=== PATIENT | male | born 1975 | race Caucasian/White ===

== ENCOUNTER → 2016-11-17 | Outpatient (CLI) | payer OTHER ==
[2013-01-25 22:45] VITALS: BP 126/75
[~2016-11-17] MED LIST: CEPHALEXIN500 M1 PO
== END ==
LOC: LAB 16:07
DX: K21.9 Gastro-esophageal reflux disease without esophagitis (principal); F98.8 Other specified behavioral and emotional disorders with onset usually occurring in childhood and adolescence; F41.9 Anxiety disorder, unspecified; R35.1 Nocturia

== ENCOUNTER → 2020-10-11 | Outpatient (CLI) | payer BC | LOC: LAB 08:33 | DX: J02.9 Acute pharyngitis, unspecified (principal) ==

== ENCOUNTER → 2021-02-03 | Outpatient (CLI) | payer BC ==
[2021-02-03 14:45] LABS: BASO # 0.04 K/mm3 (0.02-0.10); EOS # 0.13 K/mm3 (0.04-0.40); EOS % 1.6 % (0.0-4.0); HEMATOCRIT 47.8 % (42.0-52.0); HEMOGLOBIN 16.1 g/dL (13.5-18.0); LYMPH# 1.25 K/mm3 (1.50-4.00); MEAN CELL VOLUME 89 fl (78-100); MEAN CORPUSCULAR HEMOGLOBIN 30 pg (27-31); MEAN CORPUSCULAR HGB CONC 34 g/dL (33-37); MONO # 0.86 K/mm3 (0.20-0.80); NEU # 5.74 K/mm3 (1.40-6.50); PLATELET COUNT 212 K/mm3 (130-400); RED BLOOD COUNT 5.35 M/mm3 (4.20-5.60); RED CELL DISTRIBUTION WIDTH 12.2 % (11.5-14.5)
[2021-02-03 14:55] LABS: ALBUMIN 4.3 g/dL (3.5-5.0); POTASSIUM 4.5 mmol/L (3.5-5.1)
[2021-02-03 14:56] LABS: CALCIUM 9.8 mg/dL (8.3-10.5)
[2021-02-03 14:58] LABS: TOTAL PROTEIN 7.9 g/dL (6.4-8.3)
[2021-02-03 14:59] LABS: TOTAL BILIRUBIN 0.6 mg/dL (0.2-1.2)
[2021-02-03 16:20] LABS: ERYTHROCYTE SEDIMENTATION RATE 8 mm/hr (0-15)
== END ==
LOC: LAB 14:35
PROVIDERS: Otolaryngology
DX: K12.1 Other forms of stomatitis (principal)

== ENCOUNTER → 2021-03-10 | Outpatient (CLI) | payer BC ==
[2021-03-11 13:52] LABS: ANA SCREEN with REFLEX Negative (Negative)
[2021-03-11 13:53] LABS: SJOGRENS SSA 11 U/mL (0-99); SJOGRENS SSB 8 U/mL (0-99)
== END ==
LOC: LAB 13:54
PROVIDERS: Otolaryngology
DX: K12.1 Other forms of stomatitis (principal)